=== PATIENT | female | born 1960 | race African-American/Black ===

== ENCOUNTER 2017-09-06 09:58 | Emergency (ER) | payer OTHER ==
[~2017-09-06] VITALS: Ht 167.6 cm; Wt 71.0 kg
[2017-09-06] MEDS ORDERED: KETOROLAC 60MG/2ML VIAL IM ONE (15:15)
[2017-09-06] MEDS ORDERED: CYCLOBENZAPRINE 10MG TABLET PO ONE (16:00)
[2017-09-06 18:20] VITALS: BP 136/71
== END 2017-09-06 18:49 | disposition home or self-care (01) ==
LOC: ER 10:19
DX: M54.5 Low back pain (principal); I10 Essential (primary) hypertension; V43.52XA Car driver injured in collision with other type car in traffic accident, initial encounter; Y93.89 Activity, other specified; Y99.8 Other external cause status; Y92.410 Unspecified street and highway as the place of occurrence of the external cause; Z88.8 Allergy status to other drugs, medicaments and biological substances
CPT/HCPCS: 72100; 96372; 99284; J1885